=== PATIENT | female | born 1985 | race Caucasian/White ===

== ENCOUNTER 2016-08-20 05:10 | Inpatient (IN) | payer OTHER ==
[~2016-08-20] VITALS: Ht 167.6 cm; Wt 91.2 kg
[~2016-08-20 05:10] MED LIST: BACTRIM,SEPT1 TABLET PO; BENTYL10 MG PO; CELEXA20 MG PO; CLINDAMYCIN HC300 MG PO; DAILY VITAMIN1 EAC8 PO; LIDOCAINE20 MG/1 M5 PO; METHADONE H5 MG/5 ML PO; METHADONE10 MG/1 M1 PO; MOTRIN600 MG PO; MOTRIN800 MG PO; NAPROSYN500 MG PO; NO HOME MEDS; ORTHO TRI-CYCL1 EACH PO; PRENATAL TABLE1 EAC3 PO; PROMETHAZINE HC25 M1 PO; TRAMADOL HCL50 MG PO; TYLENOL EXTRA500 MG PO; ULTRAM50 MG PO; XANAX0.5 MG PO; ZANTAC150 MG PO; ZYRTEC10 M2 PO; [UNRECOGNIZED DRUG - OTHER]
[2016-08-20 05:25] VITALS: BP 145/71
[2016-08-20 07:00] LABS: EOSINOPHIL (%) 0.6 % (0-5); HEMATOCRIT 34.2 % (36.0-46.0); IMMATURE GRANULOCYTE (%) 0.1 % (0.0-0.7); LYMPHOCYTE COUNT 1.1 K/uL (1.0-2.8); MCH 29.8 PG (29.0-34.0); MCHC 33.3 G/DL (30.0-36.0); MCV 89.5 FL (83-99); MONOCYTE (%) 5.6 % (3-12); MONOCYTE COUNT 0.4 K/uL (0-0.8); NEUTROPHIL (%) 78.2 % (45-76); NEUTROPHIL COUNT 5.6 K/uL (1.8-6.4); PLATELET COUNT 265 K/uL (156-360); RBC DIS.WIDTH-CV 12.7 % (11.8-14.6); RBC DIS.WIDTH-SD 40.9 % (39-53); RED BLOOD COUNT 3.82 M/uL (3.80-5.20); WHITE BLOOD COUNT 7.2 K/uL (4.1-10.2)
[2016-08-20 07:29] LABS: AMPHETAMINES QUANT VALUE 0 NG/ML; BARBITUATES QUANT VALUE 0 NG/ML; BENZODIAZEPINES QUANT VALUE 0 NG/ML; BENZODIAZEPINES, URINE SCREEN Negative (200 ng/mL); MARIJUANA QUANT VALUE 0 NG/ML; OPIATES QUANTITATIVE VALUE 0 NG/ML; PHENCYCLIDINE QUANT VALUE 0 NG/ML
[2016-08-20 19:14] VITALS: BP 136/73
[2016-08-20 22:58] VITALS: BP 142/72
[2016-08-21 03:15] VITALS: BP 131/74
[2016-08-21 06:07] LABS: EOSINOPHIL (%) 0.8 % (0-5); EOSINOPHIL COUNT 0.1 K/uL (0-0.3); HEMATOCRIT 26.7 % (36.0-46.0); IMMATURE GRANULOCYTE (%) 0.1 % (0.0-0.7); LYMPHOCYTE COUNT 1.8 K/uL (1.0-2.8); MCH 30.7 PG (29.0-34.0); MCHC 33.7 G/DL (30.0-36.0); MCV 91.1 FL (83-99); MEAN PLAT.VOLUME 10.1 uM^3 (9.5-12.4); MONOCYTE (%) 6.4 % (3-12); MONOCYTE COUNT 0.5 K/uL (0-0.8); NEUTROPHIL (%) 69.3 % (45-76); NEUTROPHIL COUNT 5.3 K/uL (1.8-6.4); PLATELET COUNT 237 K/uL (156-360); RBC DIS.WIDTH-CV 12.7 % (11.8-14.6); RBC DIS.WIDTH-SD 42.2 % (39-53); WHITE BLOOD COUNT 7.6 K/uL (4.1-10.2)
[2016-08-21 06:10] LABS: RED BLOOD COUNT 2.93 M/uL (3.80-5.20)
[2016-08-21 07:35] VITALS: BP 136/72
[2016-08-21 11:25] VITALS: BP 137/75
[2016-08-21 15:29] VITALS: BP 158/80
[2016-08-21 19:32] VITALS: BP 136/85
[2016-08-21 22:37] VITALS: BP 131/77
[2016-08-22 06:01] VITALS: BP 143/86
[2016-08-22 08:07] VITALS: BP 131/71
[2016-08-22 11:14] VITALS: BP 134/79
[2016-08-22 15:24] VITALS: BP 144/87
[2016-08-22 18:34] VITALS: BP 147/85
[2016-08-22 23:09] VITALS: BP 129/73
[2016-08-23 03:38] VITALS: BP 121/73
[2016-08-23 10:29] VITALS: BP 140/78
[2016-08-23] MEDS ORDERED: DOCUSATE SODIU100 MG PO (11:48)
[2016-08-23] MEDS ORDERED: ENDOCET 5-3251 EACH PO (11:48)
[2016-08-23] MEDS ORDERED: FERROUS SULFAT325 MG PO (11:48)
[2016-08-23] MEDS ORDERED: IBUPROFEN800 MG PO (11:49)
[2016-08-23 12:08] VITALS: BP 137/82
== END 2016-08-23 16:29 | disposition home or self-care (01) | DRG 765 ==
LOC: 2WEST 05:10 → 2SOUTH 09:14 → 2WEST 08-22 05:55
PROVIDERS: Obstetrics & Gynecology
PROC: 10D00Z1 Extraction of Products of Conception, Low, Open Approach (ICD-10-PCS; principal; 2016-08-20)
DX: O32.1XX0 Maternal care for breech presentation, not applicable or unspecified (principal); O99.324 Drug use complicating childbirth; D62 Acute posthemorrhagic anemia; F11.90 Opioid use, unspecified, uncomplicated; O99.334 Smoking (tobacco) complicating childbirth; F17.210 Nicotine dependence, cigarettes, uncomplicated; O13.4 Gestational [pregnancy-induced] hypertension without significant proteinuria, complicating childbirth; O99.344 Other mental disorders complicating childbirth; F31.9 Bipolar disorder, unspecified; O99.02 Anemia complicating childbirth; O69.81X0 Labor and delivery complicated by cord around neck, without compression, not applicable or unspecified; Z3A.39 39 weeks gestation of pregnancy; Z37.0 Single live birth
CPT/HCPCS: 85025; 86850; 86900; 86901; J1170; J1580; J1885; J2250; J2274; J2405; J7050; J7120

== ENCOUNTER 2016-12-07 18:53 | Emergency (ER) | payer OTHER ==
[~2016-12-07] VITALS: Ht 167.6 cm; Wt 82.8 kg
[~2016-12-07 18:53] MED LIST changes: +DOCUSATE SODIU100 MG PO; +ENDOCET 5-3251 EACH PO; +FERROUS SULFAT325 MG PO; +IBUPROFEN800 MG PO
[2016-12-07 19:30] LABS: HEMATOCRIT 37.3 % (36.0-46.0); MCH 29.1 PG (29.0-34.0); MCHC 33.2 G/DL (30.0-36.0); MCV 87.6 FL (83-99); MEAN PLAT.VOLUME 8.8 uM^3 (9.5-12.4); PLATELET COUNT 321 K/uL (156-360); RBC DIS.WIDTH-CV 12.3 % (11.8-14.6); RBC DIS.WIDTH-SD 39.6 % (39-53); RED BLOOD COUNT 4.26 M/uL (3.80-5.20)
[2016-12-07 19:30] LABS: ADD MIUA? YES; BILIRUBIN NEGATIVE; BLOOD NEGATIVE; COLOR YELLOW ((YELLOW)); GLUCOSE (STRIP) NEGATIVE; KETONES 20; LEUKOCYTES TRACE; NITRITE NEGATIVE; PROTEIN (STRIP) 30; SPECIFIC GRAVITY 1.017 (1.000-1.030); UROBILINOGEN 0.2 MG/DL (0.2-1.0)
[2016-12-07 19:38] LABS: CHLORIDE 105 mEq/L (99-109); POTASSIUM 3.5 mEq/L (3.7-5.4); SODIUM 138 mEq/L (136-147)
[2016-12-07 19:39] LABS: BACTERIA RARE /HPF; EPITHELIAL CELLS RARE /HPF; MUCUS TRACE /LPF; RED BLOOD CELLS 0-5 /HPF (0-5); UCUL ADDED? NO; WHITE BLOOD CELLS 0-5 /HPF (0-5)
[2016-12-07 19:40] LABS: GLUCOSE 80 mg/dL (70-99)
[2016-12-07 19:42] LABS: ANION GAP 12 MEQ/L (2-14); TOTAL BILIRUBIN 0.3 mg/dL (0.0-1.0)
[2016-12-07 19:44] LABS: ALKALINE PHOSPHATASE 110 IU/L (3-129); GFR ESTIMATE (CALCULATED) > 59 mL/min/
[2016-12-07 19:45] LABS: UREA NITROGEN (BUN) 9 mg/dL (9-23)
[2016-12-07 19:53] LABS: QUANTITATIVE HCG < 4.0 MIU/ML
[2016-12-07] MEDS ORDERED: METHADONE10 MG/1 M1 PO (20:09)
[2016-12-07] MEDS ORDERED: IMODIUM A-D2 M2 PO (20:10)
[2016-12-07 20:54] LABS: LIPASE 15 U/L (1.0-51.0)
[2016-12-07 22:20] LABS: C DIFF TOXIN NEGATIVE (NEGATIVE)
[2016-12-07 22:21] LABS: PROBE CHECK PASS; SPECIMEN PROCESSING CONTROL PASS
[2016-12-07] MEDS ORDERED: ZOFRAN ODT4 MG PO (22:42)
[2016-12-07] MEDS ORDERED: BENTYL20 MG PO (22:42)
[2016-12-07 23:00] VITALS: BP 131/66
== END 2016-12-07 23:03 | disposition home or self-care (01) ==
LOC: EME 18:53
PROVIDERS: Emergency Medicine
DX: R19.7 Diarrhea, unspecified (principal); Z87.891 Personal history of nicotine dependence; Z88.6 Allergy status to analgesic agent; Z88.0 Allergy status to penicillin
CPT/HCPCS: 80053; 81003; 83690; 84702; 85027; 87045; 87046; 87493; 87506; 99281; 99285; J7030

== ENCOUNTER → 2017-01-19 | Outpatient (CLI) | payer OTHER ==
[~2017-01-19] MED LIST changes: +BENTYL20 MG PO; +IMODIUM A-D2 M2 PO; +ZOFRAN ODT4 MG PO
== END | disposition home or self-care (01) ==
LOC: CDC 10:25
DX: F11.90 Opioid use, unspecified, uncomplicated (principal)
CPT/HCPCS: 93000